=== PATIENT | female | born 1955 | race Caucasian/White ===

== ENCOUNTER 2017-05-20 17:10 | Emergency (ER) | payer OTHER ==
[~2017-05-20] VITALS: Ht 157.5 cm; Wt 71.0 kg
[~2017-05-20 17:10] MED LIST: ATOR20TA15 PO; ESTR42.5V VAGINAL
[2017-05-20 17:13] VITALS: BP 126/63; PULSE 89; RESP 16; TEMP 99.6; O2SAT 95
--- NOTE | 2017-05-20 17:56 | PD ---
HPI Chief Complaint: Cold / Flu Symptoms Time Seen by Provider: 17:39 Travel History International Travel<30 days: No Contact w/Intl Traveler<30days: No Traveled to known affect area: No History of Present Illness HPI 61-year-old female presents to the ED for evaluation of less than 48 hours history of headaches, fevers, sinus congestion, clear rhinorrhea, nonproductive cough, and mild nausea, decreased appetite. Symptoms onset gradually. She endorses history of environmental allergies does not currently taking any medication. She endorses sick contacts. She did not receive this years flu vaccine. She treated at home with use of accessory and ibuprofen with no improvement of symptoms. PFSH Past Medical History Blood Disorders: No Cancer: No Cardiovascular Problems: No Chemotherapy: No Cerebrovascular Accident: No Diminished Hearing: No Endocrine: No Glaucoma: No Genitourinary: No Headaches: No Hepatitis: No Hiatal Hernia: No Immune Disorder: No Medical other: Yes (HAS TENDENCY TO RUN LOW BLOOD PRESSURES CHATO.AFTER SURGERY) Musculoskeletal: No Neurologic: No Psychiatric: No Reproductive: No Respiratory: No Migraines: No Radiation Therapy: No Seizures: No Thyroid Disease: No Influenza Vaccination: Yes Past Surgical History Abdominal Surgery: No AICD: No Arteriovenous Shunt: No Cardiac Surgery: No Ear Surgery: No Endocrine Surgery: No Eye Surgery: No Genitourinary Surgery: Yes (BLADDER LIFT) Gynecologic Surgery: Yes (FIBROIDS) Hysterectomy: Yes (PARTICAL) Insulin Pump: No Joint Replacement: No Oral Surgery: No Pacemaker: No Thoracic Surgery: No Other Surgery: Yes (FIBROID SURGERY 1999) Social History Alcohol Use: Yes (1-2 BEERS A WEEK, MIX DRINKS OCCAS.) Tobacco Use: No Substance Use: No Allergies-Medications (Allergen,Severity, Reaction): Coded Allergies: No Known Allergies (Verified Adverse Reaction, Unknown, 05/20/17) Reported Meds & Prescriptions Reported Meds & Active Scripts Active Reported Atorvastatin (Atorvastatin Calcium) 20 Mg Tab 20 Mg PO HS Review of Systems Except as stated in HPI: all other systems reviewed are Neg Physical Exam Narrative GENERAL: Well-nourished, well-developed ill-appearing white female in no acute distress. SKIN: Warm and dry. HEAD: Normocephalic. Atraumatic. EYES: No scleral icterus. No injection or drainage. PERRLA. EOMI. ENT: Pearly stacy tympanic membranes bilaterally. Bilateral serous effusions. Nasal mucosa is moist. Oropharynx with mild posterior erythema. No, edema or exudate. NECK: Supple, trachea midline. No JVD or lymphadenopathy. CARDIOVASCULAR: Regular rate and rhythm without murmurs, gallops, or rubs. RESPIRATORY: Breath sounds clear and equal bilaterally. No accessory muscle use. GASTROINTESTINAL: Abdomen soft, non-tender, nondistended. + Bowel sounds MUSCULOSKELETAL: No cyanosis, or edema. BACK: Nontender without obvious deformity. No CVA tenderness. Data Data Last Documented VS Vital Signs Date Time Temp Pulse Resp B/P (MAP) Pulse Ox O2 Delivery O2 Flow Rate FiO2 05/20/17 17:22 Room Air 05/20/17 17:13 99.6 89 16 126/63 (84) 95 Orders Orders Influenzae A/B Antigen (05/20/17 17:21) [facility] Medical Decision Making Medical Screen Exam Complete: Yes Emergency Medical Condition: Yes Differential Diagnosis Influenza versus viral syndrome versus allergic rhinitis versus less likely sinusitis versus other Narrative Course 61-year-old female presents to the ED for evaluation of less than 48 hours history of headaches, fevers, sinus congestion, clear rhinorrhea, nonproductive cough, and mild nausea, decreased appetite. Patient's afebrile, ill-appearing on presentation. She has bilateral serous effusions but the exam is otherwise unremarkable. Flu swab positive. Patient's prescribed Tamiflu 75 mg twice a day 5 days. She is instructed to continue to treat symptomatically, follow up with the primary care provider, return to the ED for worsening symptoms. She is stable and discharged home. Diagnosis Primary Impression: Influenza A Referrals: Primary Care Physician Patient Instructions: General Instructions, Influenza Vaccine (ED) Additional Instructions: Rest, hydrate. Push fluids such as sports drinks, Pedialyte, popsicles, clear broth. Take Tamiflu as prescribed. Continue with symptomatic treatment. Consider an OTC medication containing a decongestant such as Mucinex D. Alternating Motrin and Tylenol every 4-6 hours as needed for continued fever. Increase handwashing frequently to avoid the spread of the virus to other family members and the community. Disinfect commonly touched surfaces such as light switches, microwaves, remote controls. Replace toothbrush at the end of this illness. Follow-up with the primary care provider this week. Return to the ED for any urgent or emergent medical condition. Med/Other Pt SpecificInfo: Prescription(s) given Scripts Oseltamivir (Tamiflu) 75 Mg Cap 75 MG PO BID for Mgmt Viral Infection for 5 Days, #10 CAP 0 Refills Prov: Jovi Waddell MD 05/20/17 Disposition: 01 DISCHARGE HOME Condition: Stable Azul Lanec May 20, 2017 17:56
[2017-05-20] MEDS ORDERED: OSEL75 PO (18:04)
== END 2017-05-20 18:15 | disposition home or self-care (01) ==
LOC: PHEFT 17:10
DX: J10.89 Influenza due to other identified influenza virus with other manifestations (principal)
CPT/HCPCS: 87804; 99283